=== PATIENT | female | born 1990 | race Caucasian/White ===

== ENCOUNTER 2019-12-31 18:59 | Emergency (ER) | payer MEDICAID ==
[~2019-12-31] VITALS: Ht 152.4 cm; Wt 68.2 kg
[~2019-12-31 18:59] MED LIST: CLIN-97 PO; COROTSUS OT; HC A30CR2 RC; HYDR28.457 TP; MOME17SP NS; NIZ2CR; PSEU-225 PO
[2019-12-31] MEDS ORDERED: AZIT-72 PO (19:30)
[2019-12-31 19:37] VITALS: BP 110/66
== END 2019-12-31 19:39 | disposition home or self-care (01) ==
LOC: ER 19:00
DX: J02.9 Acute pharyngitis, unspecified (principal); Z91.041 Radiographic dye allergy status; Z88.8 Allergy status to other drugs, medicaments and biological substances; Z88.0 Allergy status to penicillin; Z88.2 Allergy status to sulfonamides; Z79.2 Long term (current) use of antibiotics; Z79.899 Other long term (current) drug therapy
CPT/HCPCS: 87081; 87880; 99283